=== PATIENT | female | born 1940 | race Caucasian/White ===

== ENCOUNTER 2016-10-14 14:00 | Outpatient (CLI) | payer MEDICARE, OTHER ==
[2016-10-14 19:27] LABS: BASOPHILS % (AUTO) 0.7 %; EOSINOPHILS # (AUTO) 0.1 10^3/uL (0.0-0.7); EOSINOPHILS % (AUTO) 1.4 %; HCT - HEMATOCRIT 40.2 % (37.0-47.0); HGB - HEMOGLOBIN 13.7 g/dL (12.0-16.0); LYMPHOCYTES # (AUTO) 1.3 10^3/uL (1.5-3.5); LYMPHOCYTES % (AUTO) 26.6 %; MEAN CORPUSCULAR HEMOGLOBIN 32.7 pg (27.0-31.0); MEAN CORPUSCULAR HGB CONC 33.9 g/dL (32.0-36.0); MEAN CORPUSCULAR VOLUME 96.3 fL (81.0-99.0); MEAN PLATELET VOLUME 7.4 fL (7.9-10.8); MONOCYTES # (AUTO) 0.5 10^3/uL (0.0-1.0); MONOCYTES % (AUTO) 9.1 %; NEUTROPHILS # (AUTO) 3.2 10^3/uL (1.5-6.6); NEUTROPHILS % (AUTO) 62.2 %; RED BLOOD COUNT 4.18 10^6/uL (4.20-5.40); RED CELL DISTRIBUTION WIDTH 13.7 % (12.0-15.0); UNCORRECTED WHITE BLOOD COUNT 5.1 x10^3/uL; WHITE BLOOD COUNT 5.1 x10^3/uL (4.8-10.8)
== END 2016-10-14 14:01 | disposition home or self-care (01) ==
LOC: LAB.WCP 14:00
PROVIDERS: ATTEND Physician Assistant Medical
DX: I10 Essential (primary) hypertension (principal)
CPT/HCPCS: 36415; 85025

== ENCOUNTER 2019-09-12 15:25 | Outpatient (CLI) | payer MEDICARE, OTHER ==
[2019-09-12 18:45] LABS: BASOPHILS # (AUTO) 0.1 10^3/uL (0.0-0.1); BASOPHILS % (AUTO) 0.8 %; EOSINOPHILS # (AUTO) 0.1 10^3/uL (0.0-0.7); EOSINOPHILS % (AUTO) 1.1 %; HGB - HEMOGLOBIN 13.6 g/dL (12.0-16.0); LYMPHOCYTES # (AUTO) 1.1 10^3/uL (1.5-3.5); LYMPHOCYTES % (AUTO) 17.3 %; MEAN CORPUSCULAR HEMOGLOBIN 30.6 pg (27.0-31.0); MEAN CORPUSCULAR HGB CONC 32.1 g/dL (32.0-36.0); MEAN CORPUSCULAR VOLUME 95.3 fL (81.0-99.0); MEAN PLATELET VOLUME 9.1 fL (7.9-10.8); MONOCYTES # (AUTO) 0.7 10^3/uL (0.0-1.0); MONOCYTES % (AUTO) 10.9 %; NEUTROPHILS # (AUTO) 4.3 10^3/uL (1.5-6.6); NEUTROPHILS % (AUTO) 69.6 %; PLT - PLATELET COUNT 246 10^3/uL (130-450); RED BLOOD COUNT 4.45 10^6/uL (4.20-5.40); RED CELL DISTRIBUTION WIDTH 13.3 % (12.0-15.0); WHITE BLOOD COUNT 6.2 x10^3/uL (4.8-10.8)
[2019-09-12 19:13] LABS: ALBUMIN 3.9 g/dL (3.2-5.5); ALBUMIN/GLOBULIN RATIO 1.2 (1.0-2.2); ALKALINE PHOSPHATASE 45 IU/L (42-121); ALT ALANINE AMINOTRANSFERASE 19 IU/L (10-60); AST ASPARTATE AMINOTRANSFERASE 18 IU/L (10-42); BILIRUBIN,TOTAL 0.7 mg/dL (0.2-1.0); BUN - BLOOD UREA NITROGEN 22 mg/dL (6-20); CARBON DIOXIDE - CO2 27 mmol/L (21-32); CHLORIDE 105 mmol/L (101-111); CHOL/HDL RATIO 2.7 (<4.4); CHOLESTEROL 214 mg/dL; CREATININE 0.6 mg/dL (0.4-1.0); GLUCOSE 97 mg/dL (70-100); HDL CHOLESTEROL 80 mg/dL; LDL CHOLESTEROL,CALCULATED 116 mg/dL; LDL/HDL RATIO 1.5 (<4.4); SODIUM 137 mmol/L (135-145); TOTAL PROTEIN 7.1 g/dL (6.7-8.2); VLDL CHOLESTEROL 18 mg/dL
== END 2019-09-12 23:59 | disposition home or self-care (01) ==
LOC: LAB.WCP 15:25
PROVIDERS: ATTEND Physician Assistant Medical
DX: I10 Essential (primary) hypertension (principal)
CPT/HCPCS: 36415; 80053; 80061; 83721; 85025

== ENCOUNTER 2019-11-15 08:00 | Outpatient (CLI) | payer MEDICARE, OTHER | END 2019-11-15 23:59 | disposition home or self-care (01) | LOC: LAB.WCP 08:00 | PROVIDERS: ATTEND Physician Assistant Medical | DX: I26.92 Saddle embolus of pulmonary artery without acute cor pulmonale (principal); Z79.01 Long term (current) use of anticoagulants; I26.99 Other pulmonary embolism without acute cor pulmonale ==

== ENCOUNTER 2019-11-21 08:00 | Outpatient (CLI) | payer MEDICARE, OTHER | END 2019-11-21 23:59 | disposition home or self-care (01) | LOC: LAB.WCP 08:00 | PROVIDERS: ATTEND Physician Assistant Medical | DX: I26.92 Saddle embolus of pulmonary artery without acute cor pulmonale (principal); Z79.01 Long term (current) use of anticoagulants ==

== ENCOUNTER 2019-12-05 08:00 | Outpatient (CLI) | payer MEDICARE, OTHER | END 2019-12-05 23:59 | disposition home or self-care (01) | LOC: LAB.WCP 08:00 | PROVIDERS: ATTEND Family Medicine | DX: Z79.01 Long term (current) use of anticoagulants (principal) ==

== ENCOUNTER 2019-12-17 08:00 | Outpatient (CLI) | payer MEDICARE, OTHER ==
[2019-12-17 18:19] LABS: CALCIUM 9.5 mg/dL (8.5-10.3); CREATININE 0.6 mg/dL (0.4-1.0)
== END 2019-12-17 23:59 | disposition home or self-care (01) ==
LOC: LAB.WCP 08:00
PROVIDERS: ATTEND Physician Assistant Medical
DX: R91.8 Other nonspecific abnormal finding of lung field (principal)
CPT/HCPCS: 36415; 80048

== ENCOUNTER 2020-07-16 08:00 | Outpatient (CLI) | payer MEDICARE, OTHER | END 2020-07-16 23:59 | disposition home or self-care (01) | LOC: LAB.N 08:00 | PROVIDERS: ATTEND Physician Assistant Medical | DX: I26.92 Saddle embolus of pulmonary artery without acute cor pulmonale (principal); Z79.01 Long term (current) use of anticoagulants ==

== ENCOUNTER 2020-07-23 08:00 | Outpatient (CLI) | payer MEDICARE, OTHER | END 2020-07-23 23:59 | disposition home or self-care (01) | LOC: LAB.N 08:00 | PROVIDERS: ATTEND Physician Assistant Medical | DX: Z79.01 Long term (current) use of anticoagulants (principal); I26.92 Saddle embolus of pulmonary artery without acute cor pulmonale; I26.99 Other pulmonary embolism without acute cor pulmonale ==

== ENCOUNTER 2020-09-02 08:00 | Outpatient (CLI) | payer MEDICARE, OTHER ==
[2020-09-02 18:48] LABS: HCT - HEMATOCRIT 46.6 % (37.0-47.0); HGB - HEMOGLOBIN 15.4 g/dL (12.0-16.0); MEAN CORPUSCULAR HEMOGLOBIN 33.2 pg (27.0-31.0); MEAN CORPUSCULAR VOLUME 100.4 fL (81.0-99.0); MEAN PLATELET VOLUME 9.4 fL (7.9-10.8); RED BLOOD COUNT 4.64 10^6/uL (4.20-5.40); RED CELL DISTRIBUTION WIDTH 13.3 % (12.0-15.0); WHITE BLOOD COUNT 5.6 x10^3/uL (4.8-10.8)
[2020-09-02 20:38] LABS: ALBUMIN 4.2 g/dL (3.2-5.5); ALBUMIN/GLOBULIN RATIO 1.4 (1.0-2.2); BILIRUBIN,TOTAL 1.1 mg/dL (0.2-1.0); CALCIUM 9.5 mg/dL (8.5-10.3); CREATININE 0.7 mg/dL (0.4-1.0); POTASSIUM 4.1 mmol/L (3.5-5.0); TOTAL PROTEIN 7.1 g/dL (6.7-8.2)
== END 2020-09-02 23:59 | disposition home or self-care (01) ==
LOC: LAB.WCP 08:00
PROVIDERS: ATTEND Physician Assistant Medical
DX: I10 Essential (primary) hypertension (principal); I26.99 Other pulmonary embolism without acute cor pulmonale; R06.09 Other forms of dyspnea
CPT/HCPCS: 36415; 80053; 83880; 85027

== ENCOUNTER 2020-09-06 09:47 | Outpatient (CLI) | payer MEDICARE, OTHER ==
[2020-09-06] MEDS ORDERED: IOVERSOL 320 100 ML VIAL IVP ONE ×2 (09:52→10:29)
--- NOTE | 2020-09-06 12:48 | CT Report ---
PROCEDURE: ANGIO CHEST W/WO INDICATIONS: SADDLE PE, DYSPENA CONTRAST: IV CONTRAST: Optiray 320 ml: 80 PO CONTRAST: *NO PO CONTRAST TECHNIQUE: After the administration of intravenous contrast, 2 mm thick sections acquired from the pulmonary api jerad to the posterior costophrenic angles. 3-dimensional maximum intensity projection (MIP) coronal a nd sagittal reformats were then acquired through the thorax. For radiation dose reduction, the follow ing was used: automated exposure control, adjustment of mA and/or kV according to patient size. COMPARISON: None FINDINGS: Image quality: Excellent. Pulmonary arteries: Pulmonary arteries are normal in size, and demonstrate no intraluminal filling d efects to suggest central pulmonary embolism. There is a question of a tiny residual chronic left lo wer lobe pulmonary arterial clot on image 54/5. Lungs and pleura: 7 mm left apical pulmonary nodule, questionably spiculated,, on image 13/6. Anterior right upper lobe groundglass opacity measuring 1.3 cm, image 64/6. Small bullous lesion, extreme right lung base. Lungs are clear. No pleural effusions or pneumothorax. Central and peripheral airways are patent. Mediastinum: Heart size is normal, without pericardial effusion. Shotty mediastinal lymph nodes, lik edmond reactive. Thoracic aorta is normal in caliber and enhancement. Esophagus is normal in caliber, w ithout hiatal hernia. Bones and chest wall: No suspicious bony lesions. Ribs and thoracic spine appear intact throughout. No axillary or supraclavicular adenopathy. The thyroid is normal in size and there are no incident al findings. Abdomen: There is a large minimally calcified gallstone impacted in the gallbladder neck. There is no gallbladder wall thickening. There is an incidental hepatic cyst measuring 2.1 cm. Exophytic left up per pole renal cyst. IMPRESSION: 1. No evidence acute pulmonary emboli. 2. Question minimal residual chronic left lower lobe pulmonary embolus. 3. 7 mm questionable a spiculated nodule, left upper lobe, of uncertain etiology. It may represent a focus of nodular scarring or conceivably may be a subcentimeter bronchogenic carcinoma. 4. 1.3 cm groundglass opacity, right upper lobe. 5. Mild bullous disease. 6. Cholelithiasis. Comment: Recommend follow-up CT chest in 6 months to evaluate the 7 mm left upper lobe pulmonary nodu le and 1.3 cm right upper lobe groundglass opacity. CLINICAL RECOMMENDATION STATEMENTS: In patients <35 years with an ITN detected on CT, MRI, or extrathyroidal ultrasound, the Committee re commends further evaluation with dedicated thyroid ultrasound if the nodule is ?1 cm and has no suspi cious imaging features, and if the patient has normal life expectancy. In patients ?35 years with an ITN detected on CT, MRI, or extrathyroidal ultrasound, the Committee re commends further evaluation with dedicated thyroid ultrasound if the nodule is ?1.5 cm and has no abhilash picious imaging features, and if the patient has normal life expectancy. (ACR, 2014) Reviewed by: Devin Hassan MD on 09/06/2020 11:47 AM MAURICIO Approved by: Devin Hassan MD on 09/06/2020 11:47 AM MAURICIO Station ID: [id number]
== END 2020-09-06 09:48 | disposition home or self-care (01) ==
LOC: DI 09:47
PROVIDERS: ATTEND Family Medicine
DX: J43.9 Emphysema, unspecified (principal); K80.20 Calculus of gallbladder without cholecystitis without obstruction; R91.8 Other nonspecific abnormal finding of lung field
CPT/HCPCS: 71275; Q9967

== ENCOUNTER 2020-09-10 08:00 | Outpatient (CLI) | payer MEDICARE, OTHER | END 2020-09-10 23:59 | disposition home or self-care (01) | LOC: LAB.F 08:00 | PROVIDERS: ATTEND Physician Assistant Medical | DX: Z79.01 Long term (current) use of anticoagulants (principal); I26.92 Saddle embolus of pulmonary artery without acute cor pulmonale; I26.99 Other pulmonary embolism without acute cor pulmonale ==

== ENCOUNTER 2020-10-06 08:00 | Outpatient (CLI) | payer MEDICARE, OTHER | END 2020-10-06 23:59 | disposition home or self-care (01) | LOC: LAB.N 08:00 | PROVIDERS: ATTEND Physician Assistant Medical | DX: I26.99 Other pulmonary embolism without acute cor pulmonale (principal); Z79.01 Long term (current) use of anticoagulants ==

== ENCOUNTER 2020-11-14 08:00 | Outpatient (CLI) | payer MEDICARE, OTHER | END 2020-11-14 23:59 | disposition home or self-care (01) | LOC: LAB.N 08:00 | PROVIDERS: ATTEND Physician Assistant Medical | DX: N30.00 Acute cystitis without hematuria (principal) | CPT/HCPCS: 87086; 87181 ==

== ENCOUNTER 2020-12-10 08:00 | Outpatient (CLI) | payer MEDICARE, OTHER | END 2020-12-10 23:59 | disposition home or self-care (01) | LOC: LAB.N 08:00 | PROVIDERS: ATTEND Physician Assistant Medical | DX: I26.99 Other pulmonary embolism without acute cor pulmonale (principal); Z79.01 Long term (current) use of anticoagulants ==

== ENCOUNTER 2021-07-27 10:13 | Outpatient (CLI) | payer MEDICARE, OTHER ==
[2021-07-27 12:31] LABS: BASOPHILS % (AUTO) 0.7 %; EOSINOPHILS # (AUTO) 0.1 10^3/uL (0.0-0.7); EOSINOPHILS % (AUTO) 0.9 %; HCT - HEMATOCRIT 43.6 % (37.0-47.0); HGB - HEMOGLOBIN 14.4 g/dL (12.0-16.0); LYMPHOCYTES # (AUTO) 1.1 10^3/uL (1.5-3.5); LYMPHOCYTES % (AUTO) 19.7 %; MEAN CORPUSCULAR HEMOGLOBIN 31.2 pg (27.0-31.0); MEAN CORPUSCULAR VOLUME 94.6 fL (81.0-99.0); MEAN PLATELET VOLUME 9.9 fL (7.9-10.8); MONOCYTES # (AUTO) 0.6 10^3/uL (0.0-1.0); MONOCYTES % (AUTO) 11.2 %; NEUTROPHILS # (AUTO) 3.7 10^3/uL (1.5-6.6); NEUTROPHILS % (AUTO) 67.1 %; PLT - PLATELET COUNT 258 10^3/uL (130-450); RED BLOOD COUNT 4.61 10^6/uL (4.20-5.40); RED CELL DISTRIBUTION WIDTH 14.5 % (12.0-15.0); WHITE BLOOD COUNT 5.5 x10^3/uL (4.8-10.8)
[2021-07-27 12:45] LABS: ALBUMIN 3.8 g/dL (3.2-5.5); ALBUMIN/GLOBULIN RATIO 1.2 (1.0-2.2); ALKALINE PHOSPHATASE 55 IU/L (42-121); ALT ALANINE AMINOTRANSFERASE 22 IU/L (10-60); AST ASPARTATE AMINOTRANSFERASE 22 IU/L (10-42); BILIRUBIN,TOTAL 0.7 mg/dL (0.2-1.0); BUN - BLOOD UREA NITROGEN 20 mg/dL (6-20); CALCIUM 9.1 mg/dL (8.5-10.3); CARBON DIOXIDE - CO2 28 mmol/L (21-32); CHLORIDE 101 mmol/L (101-111); CHOL/HDL RATIO 2.6 (<4.4); CHOLESTEROL 237 mg/dL; CREATININE 0.7 mg/dL (0.4-1.0); GFR - MDRD 81 (>89); GLUCOSE 99 mg/dL (70-100); HDL CHOLESTEROL 90 mg/dL; LDL CHOLESTEROL,CALCULATED 131 mg/dL; LDL/HDL RATIO 1.5 (<4.4); POTASSIUM 4.2 mmol/L (3.5-5.0); SODIUM 138 mmol/L (135-145); TRIGLYCERIDES 81 mg/dL; VLDL CHOLESTEROL 16 mg/dL
== END 2021-07-27 10:14 | disposition home or self-care (01) ==
LOC: LAB.N 10:13
PROVIDERS: ATTEND Physician Assistant Medical
DX: I10 Essential (primary) hypertension (principal); I25.10 Atherosclerotic heart disease of native coronary artery without angina pectoris
CPT/HCPCS: 36415; 80053; 80061; 83721; 85025

== ENCOUNTER 2021-09-15 07:21 | Day surgery (SDC) | payer MEDICARE, OTHER ==
[2021-09-15] MEDS ORDERED: LACTATED RINGERS 1,000 ML IV ONE ×2 (07:37→09:30)
--- NOTE | 2021-09-15 08:11 | ANESTHESIA ---
Pre-Anesthesia VS, & Labs - Diagnosis positive cologuard - Procedure colonoscopy Vital Signs: Temp Pulse Resp BP Pulse Ox 36.4 C L 96 15 181/88 H 96 09/15/21 07:38 09/15/21 07:38 09/15/21 07:38 09/15/21 07:38 09/15/21 07:38 Height: 5 ft 4 in Weight (kg): 78.8 kg Body Mass Index: 29.8 BMI Classification: Overweight - NPO >8 hours - Is Patient ?: No - Lab Results Lab results reviewed: Yes Home Medications and Allergies Home Medications: Ambulatory Orders Aspirin [Aspirin EC] 81 mg PO DAILY 09/07/21 Turmeric Root Extract [Turmeric] 1,000 mg PO DAILY 09/07/21 Warfarin [Coumadin] 7.5 - 10 mg PO DAILY 09/07/21 Aspirin [Aspirin EC] 81 mg PO DAILY 09/07/21 Turmeric Root Extract [Turmeric] 1,000 mg PO DAILY 09/07/21 Warfarin [Coumadin] 7.5 - 10 mg PO DAILY 09/07/21 Allergies/Adverse Reactions: Allergies Allergy/AdvReac Type Severity Reaction Status Date / Time No Known Drug Allergies Allergy Verified 09/07/21 07:10 Anes History & Medical History - Anesthetic History Anesthesia Complications: reports: No previous complications Family history of Anesthesia Complications: Denies Family history of Malignant Hyperthermia: Denies - Medical History Cardiovascular: reports: Hypertension, Pulmonary embolism, Other Pulmonary: reports: Other Gastrointestinal: reports: None Urinary: reports: Chronic bladder infection Musculoskeletal: reports: Osteoarthritis Endocrine/Autoimmune: reports: None Skin: reports: None History of Cancer?: No - Surgical History General: reports: Colonoscopy, Other Cardiothoracic: reports: Other (PE removal, sternotomy 2020) Orthopedic: reports: Knee replacement Exam General: Alert, Oriented x3, Cooperative Dental: WNL Mouth Opening: Greater than 4 Fingerbreadths Neck Mobility: Normal Mallampati classification: I Thyromental Distance: 4-6 cm Respiratory: Lungs clear, Normal breath sounds, No respiratory distress Cardiovascular: Regular rate Neurological: Normal speech Mental/Cognitive Status: Alert/Oriented X3, Normal for patient Cognitive Status: Within normal limits Plan Anesthesia Type: Total IV Consent for Procedure(s) Verified and Reviewed: Yes Code Status: Attempt Resuscitation ASA classification: 3-Severe systemic disease Is this case an emergency?: No
[2021-09-15] MEDS ORDERED: LIDOCAINE-MPF 2% 5 ML VIAL ONE (08:19)
[2021-09-15] MEDS ORDERED: PROPOFOL 500 MG/50 ML 500 MG/50 ML VIAL ONE (08:19)
[2021-09-15] MEDS ORDERED: MIDAZOLAM 2 MG/2 ML VIAL ONE (08:54)
[2021-09-15 09:54] VITALS: BP 118/71
--- NOTE | 2021-09-15 10:46 | ANESTHESIA POST OP EVALUATION ---
Anesthesia Post Eval - Post Anesthesia Eval Vitals: Last Vital Signs Temp 36.3 C L 09/15/21 09:54 Pulse 60 09/15/21 09:54 Resp 16 09/15/21 09:54 BP 118/71 09/15/21 09:54 Pulse Ox 98 09/15/21 09:54 CV Function Including HR & BP: Stable Pain Control: Satisfactory Nausea & Vomiting: Negative Mental Status: Baseline Respiratory Status: Airway Patent Hydration Status: Satisfactory Anesthesia Complications: None
== END 2021-09-15 07:22 | disposition home or self-care (01) ==
LOC: SDS 07:21
PROVIDERS: ATTEND Surgery
PROC: 0DBL8ZZ Excision of Transverse Colon, Via Natural or Artificial Opening Endoscopic (ICD-10-PCS; 2021-09-15)
PROC: 0DBM8ZZ Excision of Descending Colon, Via Natural or Artificial Opening Endoscopic (ICD-10-PCS; principal; 2021-09-15 08:20)
DX: R19.5 Other fecal abnormalities (principal); D12.4 Benign neoplasm of descending colon; K64.8 Other hemorrhoids; K57.30 Diverticulosis of large intestine without perforation or abscess without bleeding; K63.5 Polyp of colon; Z86.711 Personal history of pulmonary embolism; Z79.01 Long term (current) use of anticoagulants; I25.10 Atherosclerotic heart disease of native coronary artery without angina pectoris
CPT/HCPCS: 45380; J7120

== ENCOUNTER → 2021-09-30 | Outpatient (CLI) | payer MEDICARE, OTHER | LOC: EMS 08:00 | PROVIDERS: ATTEND Physician Assistant Medical | DX: Z79.01 Long term (current) use of anticoagulants (principal); Z86.711 Personal history of pulmonary embolism ==

== ENCOUNTER 2021-10-14 08:00 | Outpatient (CLI) | payer MEDICARE, OTHER | END 2021-10-14 23:59 | disposition home or self-care (01) | LOC: LAB.WCP 08:00 | PROVIDERS: ATTEND Physician Assistant Medical | DX: Z79.01 Long term (current) use of anticoagulants (principal); Z86.711 Personal history of pulmonary embolism ==

== ENCOUNTER 2021-12-01 08:00 | Outpatient (CLI) | payer MEDICARE, OTHER ==
[2021-12-01 18:03] LABS: HCT - HEMATOCRIT 42.2 % (37.0-47.0); MEAN CORPUSCULAR HEMOGLOBIN 32.2 pg (27.0-31.0); MEAN CORPUSCULAR HGB CONC 33.2 g/dL (32.0-36.0); MEAN PLATELET VOLUME 9.8 fL (7.9-10.8); RED BLOOD COUNT 4.35 10^6/uL (4.20-5.40); RED CELL DISTRIBUTION WIDTH 13.3 % (12.0-15.0); WHITE BLOOD COUNT 4.7 x10^3/uL (4.8-10.8)
[2021-12-01 18:07] LABS: INR 2.6 (0.8-1.2); PT - PROTHROMBIN TIME 27.1 secs (9.9-12.6)
== END 2021-12-01 23:59 | disposition home or self-care (01) ==
LOC: LAB.N 08:00
PROVIDERS: ATTEND Physician Assistant Medical
DX: K62.5 Hemorrhage of anus and rectum (principal)
CPT/HCPCS: 36415; 85027; 85610

== ENCOUNTER 2022-07-12 08:59 | Outpatient (CLI) | payer MEDICARE, OTHER ==
[2022-07-12 12:16] LABS: BASOPHILS % (AUTO) 0.6 %; EOSINOPHILS # (AUTO) 0.1 10^3/uL (0.0-0.7); EOSINOPHILS % (AUTO) 1.1 %; HCT - HEMATOCRIT 44.2 % (37.0-47.0); HGB - HEMOGLOBIN 14.5 g/dL (12.0-16.0); LYMPHOCYTES # (AUTO) 1.1 10^3/uL (1.5-3.5); LYMPHOCYTES % (AUTO) 20.8 %; MEAN CORPUSCULAR HEMOGLOBIN 32.2 pg (27.0-31.0); MEAN CORPUSCULAR HGB CONC 32.8 g/dL (32.0-36.0); MEAN PLATELET VOLUME 9.7 fL (7.9-10.8); MONOCYTES # (AUTO) 0.6 10^3/uL (0.0-1.0); MONOCYTES % (AUTO) 11.7 %; NEUTROPHILS # (AUTO) 3.5 10^3/uL (1.5-6.6); NEUTROPHILS % (AUTO) 65.6 %; PLT - PLATELET COUNT 273 10^3/uL (130-450); RED BLOOD COUNT 4.51 10^6/uL (4.20-5.40); RED CELL DISTRIBUTION WIDTH 13.8 % (12.0-15.0); WHITE BLOOD COUNT 5.4 x10^3/uL (4.8-10.8)
[2022-07-12 12:50] LABS: ALBUMIN 3.8 g/dL (3.2-5.5); ALBUMIN/GLOBULIN RATIO 1.2 (1.0-2.2); ALKALINE PHOSPHATASE 45 IU/L (42-121); ALT ALANINE AMINOTRANSFERASE 20 IU/L (10-60); AST ASPARTATE AMINOTRANSFERASE 18 IU/L (10-42); BILIRUBIN,TOTAL 0.9 mg/dL (0.2-1.0); BUN - BLOOD UREA NITROGEN 17 mg/dL (6-20); CALCIUM 9.1 mg/dL (8.5-10.3); CARBON DIOXIDE - CO2 31 mmol/L (21-32); CHLORIDE 104 mmol/L (101-111); CHOL/HDL RATIO 2.4 (<4.4); CHOLESTEROL 227 mg/dL; CREATININE 0.8 mg/dL (0.4-1.0); GFR - MDRD 69 (>89); GLUCOSE 114 mg/dL (70-100); HDL CHOLESTEROL 93 mg/dL; LDL CHOLESTEROL,CALCULATED 121 mg/dL; LDL/HDL RATIO 1.3 (<4.4); POTASSIUM 4.1 mmol/L (3.5-5.0); SODIUM 140 mmol/L (135-145); TRIGLYCERIDES 63 mg/dL; VLDL CHOLESTEROL 13 mg/dL
== END 2022-07-12 09:00 | disposition home or self-care (01) ==
LOC: LAB.N 08:59
PROVIDERS: ATTEND Physician Assistant Medical
DX: I25.10 Atherosclerotic heart disease of native coronary artery without angina pectoris (principal); I10 Essential (primary) hypertension
CPT/HCPCS: 36415; 80053; 80061; 83721; 85025

== ENCOUNTER 2022-07-16 08:00 | Outpatient (CLI) | payer MEDICARE, OTHER | END 2022-07-16 23:59 | disposition home or self-care (01) | LOC: LAB.WCP 08:00 | PROVIDERS: ATTEND Family Medicine | DX: Z51.81 Encounter for therapeutic drug level monitoring (principal); Z79.01 Long term (current) use of anticoagulants; Z86.711 Personal history of pulmonary embolism ==

== ENCOUNTER 2022-07-19 10:39 | Outpatient (CLI) | payer MEDICARE, OTHER ==
[2022-07-19] MEDS ORDERED: iohexoL-300 100 ML VIAL ONE (10:45)
[2022-07-19] MEDS: iohexoL-300 100 ML VIAL IVP ONE (12:58)
--- NOTE | 2022-07-19 14:13 | CT Report ---
PROCEDURE: CHEST W INDICATIONS: LUNG NODULE CONTRAST: 100ml Omipaque - TECHNIQUE: After the administration of intravenous contrast, 1 mm axial images were acquired from the pulmonary apices through the posterior costophrenic angles. Axial 5 mm soft tissue kernel reconstructions were performed as well as 8 mm axial MIP and coronal and sagittal 5 mm reformations. For radiation dose reduction, the following was used: automated exposure control, adjustment of mA and/or kV according to patient size. COMPARISON: CT chest 10/29/21, 09/06/2020. FINDINGS: Image quality: Excellent. Lungs and pleura: No consolidation. No pleural effusions. No pneumothorax. Nodular opacity in the le ft apex measuring 7 mm on series 4 image 36 is unchanged. Previously identified groundglass opacities in the anterior right upper lobe has minimally decreased in size measuring 1.2 x 1.2 cm compared to 1.6 x 1.3 cm. Mediastinum: Heart size is enlarged. No pericardial effusions. No mediastinal adenopathy by size crit eria. No large vessel abnormality. Chest wall and lower neck: Thyroid is unremarkable. No axillary or supraclavicular adenopathy by size . Bones: No aggressive osseous abnormality. Upper Abdomen: Simple hepatic and renal cysts are noted requiring no additional follow-up. Gallstone without wall thickening is stable. IMPRESSION: Unchanged left apical nodule since 2020 and felt to be likely benign without additional follow-up rec ommended Stable hepatic and renal simple cysts. Reviewed by: Lee Ann Chin MD on 07/19/2022 2:12 PM PDT Approved by: Lee Ann Chin MD on 07/19/2022 2:12 PM PDT Station ID: [id number]
== END 2022-07-19 10:40 | disposition home or self-care (01) ==
LOC: DI 10:39
PROVIDERS: ATTEND Physician Assistant Medical
DX: R91.1 Solitary pulmonary nodule (principal); K76.89 Other specified diseases of liver; N28.1 Cyst of kidney, acquired
CPT/HCPCS: 71260; Q9967

== ENCOUNTER 2022-08-18 08:00 | Outpatient (CLI) | payer MEDICARE, OTHER | END 2022-08-18 23:59 | disposition home or self-care (01) | LOC: LAB.WCP 08:00 | PROVIDERS: ATTEND Family Medicine | DX: Z79.01 Long term (current) use of anticoagulants (principal); Z86.711 Personal history of pulmonary embolism ==

== ENCOUNTER 2022-09-01 08:00 | Outpatient (CLI) | payer MEDICARE, OTHER | END 2022-09-01 23:59 | disposition home or self-care (01) | LOC: LAB.N 08:00 | PROVIDERS: ATTEND Physician Assistant Medical | DX: Z79.01 Long term (current) use of anticoagulants (principal); Z86.711 Personal history of pulmonary embolism ==

== ENCOUNTER 2022-11-17 08:00 | Outpatient (CLI) | payer MEDICARE, OTHER | END 2022-11-17 23:59 | disposition home or self-care (01) | LOC: LAB.N 08:00 | PROVIDERS: ATTEND Physician Assistant Medical | DX: Z86.711 Personal history of pulmonary embolism (principal); Z79.01 Long term (current) use of anticoagulants ==

== ENCOUNTER → 2023-07-20 | Outpatient (CLI) | payer MEDICARE, OTHER | LOC: LAB.N 08:00 | PROVIDERS: ATTEND Physician Assistant Medical | DX: Z79.01 Long term (current) use of anticoagulants (principal); Z86.711 Personal history of pulmonary embolism ==

== ENCOUNTER 2023-08-29 08:00 | Outpatient (CLI) | payer MEDICARE, OTHER | END 2023-08-29 23:59 | disposition home or self-care (01) | LOC: LAB.WCP 08:00 | PROVIDERS: ATTEND Physician Assistant Medical | DX: Z51.81 Encounter for therapeutic drug level monitoring (principal); Z79.01 Long term (current) use of anticoagulants; Z86.711 Personal history of pulmonary embolism ==

== ENCOUNTER 2023-09-21 13:57 | Outpatient (CLI) | payer MEDICARE, OTHER ==
[2023-09-21 17:49] LABS: BASOPHILS % (AUTO) 0.6 %; EOSINOPHILS # (AUTO) 0.1 10^3/uL (0.0-0.7); EOSINOPHILS % (AUTO) 1.1 %; HCT - HEMATOCRIT 42.9 % (37.0-47.0); HGB - HEMOGLOBIN 14.1 g/dL (12.0-16.0); LYMPHOCYTES # (AUTO) 1.2 10^3/uL (1.5-3.5); LYMPHOCYTES % (AUTO) 22.3 %; MEAN CORPUSCULAR HEMOGLOBIN 32.2 pg (27.0-31.0); MEAN CORPUSCULAR HGB CONC 32.9 g/dL (32.0-36.0); MEAN CORPUSCULAR VOLUME 97.9 fL (81.0-99.0); MEAN PLATELET VOLUME 9.8 fL (7.9-10.8); MONOCYTES # (AUTO) 0.7 10^3/uL (0.0-1.0); MONOCYTES % (AUTO) 12.2 %; NEUTROPHILS # (AUTO) 3.4 10^3/uL (1.5-6.6); NEUTROPHILS % (AUTO) 63.6 %; PLT - PLATELET COUNT 262 10^3/uL (130-450); RED BLOOD COUNT 4.38 10^6/uL (4.20-5.40); RED CELL DISTRIBUTION WIDTH 13.5 % (12.0-15.0); WHITE BLOOD COUNT 5.4 x10^3/uL (4.8-10.8)
[2023-09-21 18:14] LABS: CALCIUM 9.3 mg/dL (8.5-10.3); CREATININE 0.6 mg/dL (0.6-1.3); POTASSIUM 4.2 mmol/L (3.5-4.5)
== END 2023-09-21 13:58 | disposition home or self-care (01) ==
LOC: LAB.N 13:57
PROVIDERS: ATTEND Physician Assistant Medical
DX: I26.92 Saddle embolus of pulmonary artery without acute cor pulmonale (principal)
CPT/HCPCS: 36415; 80048; 85025

== ENCOUNTER 2023-09-28 08:00 | Outpatient (CLI) | payer MEDICARE, OTHER | END 2023-09-28 23:59 | disposition home or self-care (01) | LOC: LAB.N 08:00 | PROVIDERS: ATTEND Physician Assistant Medical | DX: Z51.81 Encounter for therapeutic drug level monitoring (principal); Z86.711 Personal history of pulmonary embolism; Z79.01 Long term (current) use of anticoagulants ==

== ENCOUNTER 2023-10-26 08:00 | Outpatient (CLI) | payer MEDICARE, OTHER | END 2023-10-26 23:59 | disposition home or self-care (01) | LOC: LAB.WCP 08:00 | PROVIDERS: ATTEND Physician Assistant Medical | DX: Z79.01 Long term (current) use of anticoagulants (principal); Z86.711 Personal history of pulmonary embolism ==

== ENCOUNTER 2023-10-26 08:07 | Outpatient (CLI) | payer MEDICARE, OTHER ==
--- NOTE | 2023-10-26 15:24 | DEXA Report ---
PROCEDURE: Dexa Spine and/or Hip INDICATIONS: POST MENOPAUSAL TECHNIQUE: Dual energy x-ray absorptiometry (DXA) was performed on a [employer] System. Regions measur ed are the AP Spine, femoral neck, and if needed forearm. COMPARISON: None FINDINGS: Lumbar Spine: Bone Mineral Density: 1.280 g/cm/cm,T score: 0.8. Normal Left Femoral Neck: Bone Mineral Density: 0.751 g/cm/cm, T score: -2.1, osteopenia. Left Hip: Bone Mineral Density: 0.929 g/cm/cm,T score: -0.6. FRAX risk factors: None given. 10 year risk of major osteoporotic fracture: 16%% major osteoporotic fracture = hip, clinical vertebral, proximal humerus, distal forearm 10 year risk of hip fracture: 5%% (T score greater or equal to -1.0: NORMAL) (T score from -1.1 to -2.4: OSTEOPENIA) (T score less than or equal to -2.5 to: OSTEOPOROSIS) Impression: By WHO criteria, this patient has low bone density (osteopenia). Patients with diagnosis of osteoporosis or osteopenia should have regular bone mineral density assess ment. For those eligible for Medicare, routine testing is allowed once every 2 years. Testing frequ ency can be increased for patients who have rapidly progressing disease or for those who are receivin g medical therapy to restore bone mass. Reviewed by: Suzanne Ferro MD on 10/26/2023 3:22 PM PDT Approved by: Suzanne Ferro MD on 10/26/2023 3:22 PM PDT Station ID: [id number]
== END 2023-10-26 08:08 | disposition home or self-care (01) ==
LOC: DI 08:07
PROVIDERS: ATTEND Physician Assistant Medical
DX: M85.88 Other specified disorders of bone density and structure, other site (principal); Z78.0 Asymptomatic menopausal state; Z79.01 Long term (current) use of anticoagulants; Z86.711 Personal history of pulmonary embolism